=== PATIENT | male | born 1950 | race Caucasian/White ===

== ENCOUNTER → 2016-11-30 | Outpatient (CLI) | payer OTHER ==
[~2016-11-30] MED LIST: ASPI81TA28 PO; ATOR-26 PO; CLOP1TAB15 PO; METO25TA56 PO; NTRGSL/4 SL
[2016-11-30 09:26] LABS: BASO % 0.6 %; BASO ABS # 0.03 K/uL (0-0.2); COMPLETE YES; HEMATOCRIT 41.7 % (42-52); IG% 0.2 %; LYMPH % 23.6 %; MEAN CELL VOLUME 91.4 fL (80-100); MEAN CORPUSCULAR HEMOGLOBIN 31.6 pg (25-34); MEAN CORPUSCULAR HGB CONC 34.5 g/dl (32-36); MEAN PLATELET VOLUME 12.4 fL (7.4-10.4); MONO % 8.4 %; NEUT % 64.2 %; PLATELET COUNT 187 K/uL (130-400); RED BLOOD COUNT 4.56 M/uL (4.7-6.1); WHITE BLOOD COUNT 4.66 K/uL (4.8-10.8)
[2016-11-30 09:46] LABS: ESTIMATED AVERAGE GLUCOSE 120 mg/dl; HA1C FLAG Normal (Normal)
[2016-11-30 09:49] LABS: ALT/SGPT 44 U/L (12-78); BLOOD UREA NITROGEN 23 mg/dl (7-18); CALCIUM 9.4 mg/dl (8.5-10.1); CARBON DIOXIDE 28 mmol/L (21-32); CHLORIDE 105 mmol/L (98-107); CHOLESTEROL 135 mg/dl (0-200); GLUCOSE 100 mg/dl (70-99); POTASSIUM 4.3 mmol/L (3.5-5.1); SODIUM 139 mmol/L (136-145); TRIGLYCERIDES 42 mg/dl (0-150); VERY LOW DENSITY LIPOPROT CALC 8 mg/dl
[2016-11-30 09:59] LABS: ALB/GLOB RATIO 1.4 (0.9-2); ALKALINE PHOSPHATASE 94 U/L (45-117); AST/SGOT 26 U/L (15-37); CHOLESTEROL/HDL RATIO 1.7; HDL CHOLESTEROL 79 mg/dl; LDL CHOLESTEROL CALCULATED 48 mg/dl; THYROID STIMULATING HORMONE 0.634 uIu/ml (0.300-4.500)
== END | disposition home or self-care (01) ==
LOC: C.LAB 07:12
PROVIDERS: ATTEND Family Medicine
DX: R73.9 Hyperglycemia, unspecified (principal); D64.9 Anemia, unspecified; I25.10 Atherosclerotic heart disease of native coronary artery without angina pectoris; E78.5 Hyperlipidemia, unspecified